=== PATIENT | male | born 1935 | race Caucasian/White ===

== ENCOUNTER 2018-02-03 09:20 | Day surgery (SDC) | payer MEDICARE, BC ==
[2018-02-03] MEDS ORDERED: Midazolam 1 MG/ML 2 ML SDV IV ONE (09:21)
[2018-02-03] MEDS ORDERED: Sodium Chloride 0.9% 10 ML Syringe IV ONE (09:21)
[2018-02-03] MEDS ORDERED: Dexamethasone 4 MG/ML SDV IV ONE (09:21)
[2018-02-03] MEDS ORDERED: Phenylephrine 10% Ophth Soln 5 ML Bot EYELF ONE (09:48)
[2018-02-03] MEDS ORDERED: Moxifloxacin 0.5% Ophth Soln 3 ML Bottle EYELF ONE (09:48)
[2018-02-03] MEDS ORDERED: Timolol Maleate 0.5% Ophth Soln 5 ML Bottle EYELF ONE (09:48)
[2018-02-03] MEDS ORDERED: Dilation Soln 1 EA EACH EYELF ONE (09:48)
[2018-02-03] MEDS ORDERED: Phenylephrine 2.5% Ophth Soln 15 ML Bot EYELF ONE (09:48)
[2018-02-03] MEDS ORDERED: Povidone-Iodine 5% Sterile Ophth Soln 30 ML Bottle EYELF ONE ×3 (09:48→10:24)
[2018-02-03] MEDS ORDERED: Proparacaine 0.5% Ophth Soln 15 ML Bottle EYELF ONE (09:51)
[2018-02-03] MEDS ORDERED: Sodium Chloride 0.9% 10 ML Syringe FLUSH ONE (09:55)
[2018-02-03] MEDS ORDERED: Tetracaine HCl/PF 0.5% 4 ML Bottle EYELF ONE (10:00)
[2018-02-03] MEDS ORDERED: Chondroitin Sulfate/Hyaluronate Sodium Ophth Inj 0.5 ML Syringe IOCULAR ONE ×4 (10:22→10:28)
[2018-02-03] MEDS ORDERED: Apraclonidine 0.5% Ophth Soln 5 ML Bot EYELF ONE (10:24)
[2018-02-03] MEDS ORDERED: Balanced Salt Solution Ophth Irrig 15 ML Bottle EYELF ONE ×2 (10:28)
[2018-02-03] MEDS ORDERED: Cataract Ophth Solution EYELF ONE (10:28)
[2018-02-03] MEDS ORDERED: Balanced Salt Solution Ophth Irrig 500 ML Bottle IOCULAR ONE (10:28)
[2018-02-03] MEDS ORDERED: Vancomycin 500 MG SDV EYELF ONE ×2 (11:08)
[2018-02-03] MEDS ORDERED: Lidocaine 1% 30 ML SDV ONE (11:08)
[2018-02-03] MEDS ORDERED: Dexamethasone/Neomycin/Polymyxin B Ophth Oint 3.5 GM Tube EYELF ONE (11:10)
--- NOTE | 2018-02-03 12:04 | OR ---
DATE: 02/03/2018 PREOPERATIVE DIAGNOSIS: Visually significant mixed cataract, left eye. POSTOPERATIVE DIAGNOSIS: Visually significant mixed cataract, left eye. PROCEDURE: Extracapsular cataract extraction with intraocular lens implant, left eye. ANESTHESIA: Topical/local MAC. COMPLICATIONS: None. INDICATION: Mr. Noel was seen in the clinic with complaints of difficulty reading and difficulty seeing the television guide. Clinical examination revealed visually significant mixed cataract. I explained options, offered cataract surgery; and I explained risks including the potential for infection, retinal detachment, loss of vision, and need for additional surgery amongst others. We discussed implant options. He has requested a monofocal implant. He has voiced understanding with respect to risks and wished to proceed. OPERATIVE DESCRIPTION: After informed consent was obtained and the risks, benefits, and alternatives were explained, the patient was brought to the OR. Topical anesthesia was administered to the left eye. He was prepped and draped in a sterile fashion. Attention was placed on the left eye. A sterile lid speculum was placed into the left eye to allow operative exposure. A full- thickness paracentesis was then made temporal. Preservative-free lidocaine followed by Viscoat was injected into the anterior chamber. A 2.75-mm incision was then made temporally. A bent needle cystotome was then used to create a small janusz in the anterior capsule; 5.5 mm curvilinear capsulorrhexis was created. Nucleus was hydrodissected, hydrodelinated, decompressed centrally, rotated, and noted to be free of any adhesions. I inserted the phacoemulsification hand piece into the eye. The phacoemulsification handpiece failed to calibrate with the foot pedal. Emulsification handpiece was removed. We switched to the backup JAMAR machine, and the cataract was removed using the JAMAR machine using a divide and conquer technique. Following removal of the nucleus, the remaining cortical material was removed using the I/A handpiece. Additional viscoelastic was then injected into the capsular bag. The intraocular lens was inserted. Remaining viscoelastic was then aspirated from both the anterior and posterior chambers. Wound and paracentesis sites were hydrated; 0.1 mL of preservative free vancomycin was injected intracamerally. Intraocular pressure was then assessed and found to be in the high normal range. Wound and paracentesis sites were Gurpreet negative. Intraocular lens was clear and well centered, and a good red reflex was noted. Postoperative medications were administered. Sterile patch and shield were placed over the eye. The patient was awakened from light sedation and transported to the postoperative recovery area having tolerated the procedure well. [facility] /[id number]
[2018-02-04] MEDS ORDERED: Timolol Maleate 0.25% Ophth Soln 5 ML Bottle EYELF SCH (09:00)
== END 2018-02-03 12:13 | disposition home or self-care (01) ==
LOC: DL.SDS 09:20
PROVIDERS: ATTEND Ophthalmology
DX: H25.812 Combined forms of age-related cataract, left eye (principal); I10 Essential (primary) hypertension; H91.90 Unspecified hearing loss, unspecified ear; E78.5 Hyperlipidemia, unspecified; Z79.82 Long term (current) use of aspirin; Z79.01 Long term (current) use of anticoagulants; Z88.0 Allergy status to penicillin
CPT/HCPCS: 66984; A9270; J1100; J2250; J3370; J7050

== ENCOUNTER 2018-02-10 08:48 | Day surgery (SDC) | payer MEDICARE, BC ==
[2018-02-10] MEDS ORDERED: Dexamethasone 4 MG/ML SDV IV ONE (08:49)
[2018-02-10] MEDS ORDERED: Sodium Chloride 0.9% 10 ML Syringe IV ONE (08:49)
[2018-02-10] MEDS ORDERED: Midazolam 1 MG/ML 2 ML SDV IV ONE (08:49)
[2018-02-10] MEDS ORDERED: Ondansetron 4 MG/2 ML SDV IVPUSH PRN (09:00)
[2018-02-10] MEDS ORDERED: Phenylephrine 10% Ophth Soln 5 ML Bot EYERT PRN (09:00)
[2018-02-10] MEDS ORDERED: Phenylephrine 10% Ophth Soln 5 ML Bot EYERT ONE (09:00)
[2018-02-10] MEDS ORDERED: Moxifloxacin 0.5% Ophth Soln 3 ML Bottle EYERT ONE (09:00)
[2018-02-10] MEDS ORDERED: Sodium Chloride 0.9% 10 ML Syringe FLUSH PRN (09:00)
[2018-02-10] MEDS ORDERED: Povidone-Iodine 5% Sterile Ophth Soln 30 ML Bottle EYERT ONE ×2 (09:00→10:21)
[2018-02-10] MEDS ORDERED: Cataract Ophth Solution EYERT ONE (09:00)
[2018-02-10] MEDS ORDERED: Proparacaine 0.5% Ophth Soln 15 ML Bottle EYERT ONE (09:00)
[2018-02-10] MEDS ORDERED: Timolol Maleate 0.5% Ophth Soln 5 ML Bottle EYERT ONE (09:00)
[2018-02-10] MEDS ORDERED: Acetaminophen 325 MG Tab PO PRN (09:00)
[2018-02-10] MEDS ORDERED: Tetracaine HCl/PF 0.5% 4 ML Bottle EYERT ONE (10:21)
[2018-02-10] MEDS ORDERED: Lidocaine 1% 30 ML SDV INJECT ONE (10:26)
[2018-02-10] MEDS ORDERED: Vancomycin 500 MG SDV EYERT ONE (10:27)
[2018-02-10] MEDS ORDERED: Balanced Salt Solution Ophth Irrig 500 ML Bottle IOCULAR ONE (10:27)
[2018-02-10] MEDS ORDERED: Chondroitin Sulfate/Hyaluronate Sodium Ophth Inj 0.75 ML Syringe EYERT ONE (10:29)
[2018-02-10] MEDS ORDERED: Apraclonidine 0.5% Ophth Soln 5 ML Bot EYERT ONE (10:39)
[2018-02-10] MEDS ORDERED: Dexamethasone/Neomycin/Polymyxin B Ophth Oint 3.5 GM Tube EYERT ONE (10:39)
--- NOTE | 2018-02-10 12:52 | OR ---
DATE: 02/10/2018 PREOPERATIVE DIAGNOSIS: Visually significant mixed cataract, right eye. POSTOPERATIVE DIAGNOSIS: Visually significant mixed cataract, right eye. PROCEDURE: Extracapsular cataract extraction with intraocular lens implant, right eye. ANESTHESIA: Topical/local MAC. COMPLICATIONS: None. INDICATION: Mr. Noel was seen in the clinic. He is unhappy with his vision, complaining of difficulty reading and difficulty seeing television. Clinical examination reveals visually significant mixed cataract with both nuclear and central cortical cataract. I explained options; I offered cataract surgery; and I explained risks. He is symptomatic and requested surgery to reduce symptoms and improve vision and function. He requested a monofocal implant. OPERATIVE DESCRIPTION: After informed consent was obtained and the risks, benefits, and alternatives were explained, the patient was brought to the operative suite and topical anesthesia was administered. The patient was then prepped and draped in the sterile fashion, and attention was placed on the right eye. A sterile lid speculum was placed into the right eye to allow operative exposure. A full-thickness paracentesis was made in the temporal portion of the operative eye. Preservative-free lidocaine 0.1 mL was injected into the anterior chamber followed by viscoelastic. A full-thickness corneal incision was then made into the anterior chamber. A bent needle cystotome was used to create a small janusz in the anterior capsule. The capsulorrhexis forceps was then used to create a 360-degree curvilinear capsulorrhexis. The nucleus was then removed using a phacoemulsification handpiece, and the remaining cortical material was then removed with irrigation and aspiration handpiece. Following removal of the cortical material, the capsular bag was then inspected and noted to be free of any holes or tears. Viscoelastic was then injected into the capsular bag, and the intraocular lens was inserted into the capsular bag. The viscoelastic material was then removed from both the anterior and posterior chambers and from behind the IOL. The lens and capsular bag were then reinspected. The IOL was well centered and the capsular bag intact. The wound and paracentesis sites were inspected and hydrated with balanced saline solution. Both were found to be self-sealing. The intraocular pressure was assessed digitally and found to be within normal range. A good red reflex was noted at the completion of the procedure. No complications occurred during the operation. At the completion of the procedure, Maxitrol, Voltaren, and Iopidine drops were placed into the operative eye. A sterile eye shield was placed over the operative eye, and the patient was transported to the postoperative recovery area having tolerated the procedure well. Postoperative instructions were given along with a postoperative appointment. The patient was advised to call with any questions or concerns. [facility] /[id number]
== END 2018-02-10 11:43 | disposition home or self-care (01) ==
LOC: DL.SDS 08:48
PROVIDERS: ATTEND Ophthalmology
DX: H25.811 Combined forms of age-related cataract, right eye (principal); I10 Essential (primary) hypertension; E78.5 Hyperlipidemia, unspecified; I25.10 Atherosclerotic heart disease of native coronary artery without angina pectoris; Z95.5 Presence of coronary angioplasty implant and graft; Z79.82 Long term (current) use of aspirin; Z79.01 Long term (current) use of anticoagulants; Z79.899 Other long term (current) drug therapy; Z88.0 Allergy status to penicillin
CPT/HCPCS: 00142; 66984; A9270; J3370; C1780; J1100; J2250; J7050